=== PATIENT | male | born 1975 | race Caucasian/White ===

== ENCOUNTER 2017-07-22 23:59 | Emergency (ER) | payer OTHER ==
[~2017-07-22] VITALS: Ht 175.3 cm; Wt 95.3 kg
[2017-07-23] MEDS ORDERED: ERYTHROMYCIN500 MG PO (01:40)
[2017-07-23] MEDS ORDERED: NAPROSYN500 MG PO (01:40)
[2017-07-23 02:15] VITALS: BP 130/85
--- NOTE | 2017-07-27 15:51 | EKG ---
[place] [address] ELECTROCARDIOGRAM REPORT Name: MARIA LUZ NUNEZ Room: [facility]#: [id number] Admission: 07/22/17 Attend Phys: Discharge: 07/23/17 Date of : 79 Report #: [id number] THIS REPORT FOR: //name// [facility] ED Test Date: 2017-07-23 Test Time: 01:10:27 Pat Name: MARIA LUZ NUNEZ Department: Room: Gender: M Manager Report: SAUL : 1975 Requested By: Order Number: [id number] Lloyd MD: Shiraz Duvall Measurements Intervals [place] Rate: 88 P: 32 CO: 152 QRS: -10 QRSD: 107 T: 62 QT: 341 QTc: 413 Interpretive Statements Sinus rhythm RSR' in V1 or V2, probably normal variant Inferior infarct, old possible Baseline wander in lead(s) V2 No previous ECG available for comparison Electronically Signed On 07-27-2017 15:51:19 CDT by Shiraz Duvall [email or web address] <ELECTRONICALLY SIGNED> By: Shiraz Duvall MD, [facility] 07/27/17 1551 0110 011 Shiraz Duvall MD, FACC /EPI
== END 2017-07-23 02:17 | disposition home or self-care (01) ==
LOC: M.ERS 23:59
DX: M77.9 Enthesopathy, unspecified (principal); J06.9 Acute upper respiratory infection, unspecified; F17.210 Nicotine dependence, cigarettes, uncomplicated; Z88.0 Allergy status to penicillin

== ENCOUNTER 2017-08-08 22:52 | Emergency (ER) | payer OTHER ==
[~2017-08-08] VITALS: Ht 175.3 cm; Wt 95.3 kg
[~2017-08-08 22:52] MED LIST: ERYTHROMYCIN500 MG PO; NAPROSYN500 MG PO
[2017-08-08] MEDS ORDERED: HYDROCODONE-AP1 EAC6 PO (23:44)
[2017-08-08] MEDS ORDERED: KEFLEX500 M1 PO (23:44)
[2017-08-08] MEDS ORDERED: BACTRIM DS TAB1 EACH PO (23:44)
[2017-08-09] VITALS: BP 109/78
== END 2017-08-09 00:01 | disposition home or self-care (01) ==
LOC: M.ERS 22:52
DX: L03.115 Cellulitis of right lower limb (principal); F17.210 Nicotine dependence, cigarettes, uncomplicated; Z88.0 Allergy status to penicillin; Z88.6 Allergy status to analgesic agent

== ENCOUNTER 2017-08-13 17:01 | Emergency (ER) | payer OTHER ==
[~2017-08-13] VITALS: Ht 175.3 cm; Wt 95.3 kg
[~2017-08-13 17:01] MED LIST changes: +BACTRIM DS TAB1 EACH PO; +HYDROCODONE-AP1 EAC6 PO; +KEFLEX500 M1 PO
[2017-08-13 18:08] LABS: ABSOLUTE BASOPHILS 0.1 thou/uL (0.0-0.2); ABSOLUTE EOSINOPHILS 0.2 thou/uL (0.0-0.7); ABSOLUTE MONOCYTES 0.9 thou/uL (0.0-1.2); ABSOLUTE NEUTROPHILS 5.4 thou/uL (1.6-8.1); BASOPHILS 1.2 %; EOSINOPHILS 2.5 %; HEMOGLOBIN 15.7 gm/dL (14.0-18.0); LYMPHOCYTES 23.1 %; MCHC 34.2 g/dL (28.0-37.0); MCV 87.6 fL (80.0-100.0); MONOCYTES 10.8 %; MPV 8.1 fl. (7.2-11.1); NUCLEATED RBCS 0 /100WBC; PLATELET COUNT* 231 thou/uL (150-400); POLYS 62.4 %; RBC 5.25 mil/uL (4.50-6.00); WBC 8.6 thou/uL (4.0-11.0)
[2017-08-13 18:16] LABS: CALCIUM 9.3 mg/dL (8.5-10.1); CREATININE 1.4 mg/dL (0.6-1.3)
[2017-08-13 18:21] LABS: ALBUMIN 3.8 g/dL (3.4-5.0); TOTAL BILIRUBIN 0.3 mg/dL (<0.1-1.0); TOTAL PROTEIN 7.8 g/dL (6.4-8.2)
[2017-08-13] MEDS ORDERED: HYDROCODONE-AP1 EAC6 PO (18:51)
[2017-08-13] MEDS ORDERED: IBUPROFEN 800800 M1 PO (18:52)
[2017-08-13 19:01] VITALS: BP 110/60
== END 2017-08-13 19:02 | disposition home or self-care (01) ==
LOC: M.ERS 17:01
PROVIDERS: Physician Assistant
DX: M79.671 Pain in right foot (principal); E79.0 Hyperuricemia without signs of inflammatory arthritis and tophaceous disease; F17.210 Nicotine dependence, cigarettes, uncomplicated; Z88.0 Allergy status to penicillin; Z88.6 Allergy status to analgesic agent

== ENCOUNTER 2018-07-17 11:55 | Emergency (ER) | payer OTHER ==
[~2018-07-17] VITALS: Ht 175.3 cm; Wt 108.9 kg
[~2018-07-17 11:55] MED LIST changes: +IBUPROFEN 800800 M1 PO
[2018-07-17 12:03] VITALS: BP 129/80
[2018-07-17] MEDS ORDERED: BACTRIM DS TAB1 EAC1 PO (12:19)
== END 2018-07-17 12:27 | disposition home or self-care (01) ==
LOC: M.ERS 11:55
DX: S61.012A Laceration without foreign body of left thumb without damage to nail, initial encounter (principal); W26.0XXA Contact with knife, initial encounter; Y93.89 Activity, other specified; Y92.89 Other specified places as the place of occurrence of the external cause; Y99.8 Other external cause status; M10.9 Gout, unspecified; F17.210 Nicotine dependence, cigarettes, uncomplicated; Z88.0 Allergy status to penicillin; Z88.5 Allergy status to narcotic agent